=== PATIENT | male | born 1980 | race Caucasian/White ===

== ENCOUNTER 2021-05-17 04:15 | Emergency (ER) | payer MEDICAID ==
[~2021-05-17] VITALS: Ht 172.7 cm; Wt 127.3 kg
[~2021-05-17 04:15] MED LIST: CITA-144 PO
[2021-05-17 05:18] LABS: BASOPHILS % (AUTO) 0.2 % (0.0-2.0); EOSINOPHILS % (AUTO) 5.4 % (1.0-6.0); HEMATOCRIT 42.1 % (41-53); HEMOGLOBIN 14.5 g/dL (13.5-17.5); LYMPHOCYTES # (AUTO) 1.3 K/uL (1.0-4.8); LYMPHOCYTES % (AUTO) 19.9 % (22.0-44.0); MEAN CORPUSCULAR HEMOGLOBIN 30.9 pg (26.0-34.0); MEAN CORPUSCULAR HGB CONC 34.5 G/dL (31.0-37.0); MEAN CORPUSCULAR VOLUME 90 fL (80-100); MONOCYTES # (AUTO) 0.6 K/uL (0.1-1.0); MONOCYTES % (AUTO) 8.6 % (2.0-9.0); NEUTROPHILS # (AUTO) 4.4 K/uL (1.8-7.7); NEUTROPHILS % (AUTO) 65.9 % (40.0-70.0); PLATELET COUNT (AUTO) 257 K/uL (150-450); RED BLOOD CELL COUNT(AUTO) 4.69 MIL/uL (4.50-5.90); RED CELL DISTRIBUTION WIDTH 14.1 % (11.5-14.5)
[2021-05-17 05:22] LABS: ANION GAP 9 mmol/L (8-16); CALCIUM, TOTAL 8.6 mg/dL (8.8-10.5); CARBON DIOXIDE 33 mmol/L (22-29); CHLORIDE 103 mmol/L (98-107); CREATININE 0.96 mg/dL (0.60-1.30); GLOMERULAR FILTR. RATE CALC > 60 mL/min (>60); GLUCOSE,RANDOM 100 mg/dL (70-110); POTASSIUM 3.8 mmol/L (3.5-5.1); SODIUM SERUM 145 mmol/L (136-145); UREA NITROGEN, BLOOD 15 mg/dL (7-18)
[2021-05-17 05:29] LABS: ALANINE AMINOTRANSFERASE 39 U/L (12-78); ALBUMIN 3.2 g/dL (3.4-5.0); ALKALINE PHOSPHATASE 103 U/L (46-116); ASPARTATE AMINOTRANSFERASE 25 U/L (15-37); BILIRUBIN,TOTAL 0.3 mg/dL (0.1-1.0); TOTAL PROTEIN, SERUM 6.6 g/dL (6.4-8.2)
[2021-05-17] MEDS ORDERED: SODIUM CHLORIDE 0.9% 1,000 ML IV ONE (06:15)
[2021-05-17 07:10] VITALS: BP 139/88
== END 2021-05-17 09:47 | disposition home or self-care (01) ==
LOC: EMS 04:18
DX: K59.00 Constipation, unspecified (principal); K58.0 Irritable bowel syndrome with diarrhea; F32.9 Major depressive disorder, single episode, unspecified
CPT/HCPCS: 36415; 74019; 80053; 85025; 96360; 99284; G0480; J7030

== ENCOUNTER 2021-07-23 07:15 | Emergency (ER) | payer MEDICAID ==
[~2021-07-23] VITALS: Ht 172.7 cm; Wt 122.7 kg
[2021-07-23 07:55] LABS: BASOPHILS % (AUTO) 0.5 % (0.0-2.0); EOSINOPHILS % (AUTO) 3.9 % (1.0-6.0); HEMATOCRIT 41.2 % (41-53); HEMOGLOBIN 14.3 g/dL (13.5-17.5); LYMPHOCYTES # (AUTO) 2.1 K/uL (1.0-4.8); LYMPHOCYTES % (AUTO) 23.2 % (22.0-44.0); MEAN CORPUSCULAR HEMOGLOBIN 30.4 pg (26.0-34.0); MEAN CORPUSCULAR HGB CONC 34.7 G/dL (31.0-37.0); MEAN CORPUSCULAR VOLUME 88 fL (80-100); MONOCYTES # (AUTO) 0.8 K/uL (0.1-1.0); MONOCYTES % (AUTO) 8.6 % (2.0-9.0); NEUTROPHILS # (AUTO) 5.7 K/uL (1.8-7.7); NEUTROPHILS % (AUTO) 63.8 % (40.0-70.0); PLATELET COUNT (AUTO) 236 K/uL (150-450); RED BLOOD CELL COUNT(AUTO) 4.71 MIL/uL (4.50-5.90); RED CELL DISTRIBUTION WIDTH 13.9 % (11.5-14.5)
[2021-07-23 07:57] VITALS: BP 117/68
[2021-07-23 08:07] LABS: ANION GAP 6 mmol/L (8-16); CARBON DIOXIDE 32 mmol/L (22-29); CHLORIDE 100 mmol/L (98-107); CREATININE 0.88 mg/dL (0.60-1.30); GLOMERULAR FILTR. RATE CALC > 60 mL/min (>60); GLUCOSE,RANDOM 99 mg/dL (70-110); POTASSIUM 4.1 mmol/L (3.5-5.1); SODIUM SERUM 138 mmol/L (136-145); UREA NITROGEN, BLOOD 21 mg/dL (7-18)
[2021-07-23 08:12] LABS: ALANINE AMINOTRANSFERASE 51 U/L (12-78); ALBUMIN 3.4 g/dL (3.4-5.0); ALKALINE PHOSPHATASE 120 U/L (46-116); ASPARTATE AMINOTRANSFERASE 31 U/L (15-37); BILIRUBIN,TOTAL 0.2 mg/dL (0.1-1.0); TOTAL PROTEIN, SERUM 6.8 g/dL (6.4-8.2)
[2021-07-23 08:33] LABS: COVID AG,FIA SOURCE NASOPHARYNGEAL
[2021-07-23 08:41] LABS: AMPHET/METH SCREEN,URINE POSITIVE (NEGATIVE); BARBITURATE SCREEN, URINE NEGATIVE (NEGATIVE); BENZODIAZEPINES SCREEN,URINE NEGATIVE (NEGATIVE); CANNABINOID SCREEN,URINE POSITIVE (NEGATIVE); COCAINE SCREEN,URINE NEGATIVE (NEGATIVE); METHADONE SCREEN, URINE NEGATIVE (NEGATIVE); OPIATE SCREEN,URINE NEGATIVE (NEGATIVE)
[2021-07-23 08:42] LABS: PHENCYCLIDINE SCREEN,URINE NEGATIVE (NEGATIVE)
[2021-07-23] MEDS ORDERED: PARO-38 PO (11:28)
== END 2021-07-23 13:50 | disposition home or self-care (01) ==
LOC: EMS 07:16
DX: F32.A Depression, unspecified (principal); K59.00 Constipation, unspecified; Z88.8 Allergy status to other drugs, medicaments and biological substances; Z20.822 Contact with and (suspected) exposure to COVID-19
CPT/HCPCS: 36415; 80053; 80307; 85025; 87426; 99285; G0480

== ENCOUNTER 2021-07-25 11:47 | Inpatient (IN) | payer MEDICAID ==
[~2021-07-25] VITALS: Ht 172.7 cm; Wt 129.3 kg
[~2021-07-25 11:47] MED LIST changes: +PARO-38 PO
[2021-07-25] MEDS ORDERED: ZOLPIDEM TARTRATE 10 MG TABLET PO PRN (12:15)
[2021-07-25] MEDS ORDERED: HALOPERIDOL 5 MG TABLET PO PRN (12:15)
[2021-07-25 14:53] VITALS: BP 130/80
[2021-07-25] MEDS ORDERED: PNEUMOCOCCAL VACCINE POLYVALENT 0.5 ML VIAL [PPSV23] IM. ONE (15:15)
[2021-07-25 15:22] VITALS: BP 130/80
[2021-07-25 16:10] VITALS: BP 128/82
[2021-07-25] MEDS ORDERED: ONDANSETRON HCL 4 MG TABLET PO PRN (20:30)
[2021-07-25] MEDS ORDERED: CloNIDine HCL 0.1 MG TABLET PO PRN (20:30)
[2021-07-25] MEDS ORDERED: ALBUTEROL SULFATE HFA 90 MCG/PUFF 8 GM INHALER IH PRN (20:30)
[2021-07-25] MEDS ORDERED: BACITRACIN 28 GM OINTMENT TP PRN (20:30)
[2021-07-25] MEDS ORDERED: BENZOCAINE/MENTHOL LOZENGE PO PRN (20:30)
[2021-07-25] MEDS ORDERED: LOPERAMIDE HCL 2 MG CAPSULE PO PRN (20:30)
[2021-07-25] MEDS ORDERED: OMEPRAZOLE 20 MG CAPSULE PO PRN (20:30)
[2021-07-25] MEDS ORDERED: ACETAMINOPHEN 325 MG TABLET PO PRN (20:30)
[2021-07-25] MEDS ORDERED: DOCUSATE SODIUM 100 MG CAPSULE PO PRN (20:30)
[2021-07-25] MEDS ORDERED: MAG HYDROX/AL HYDROX/SIMETH ES 30 ML SUSPENSION UDCUP PO PRN (20:30)
[2021-07-25] MEDS ORDERED: MAGNESIUM HYDROXIDE SUSPENSION 30 ML UDCUP PO PRN (20:30)
[2021-07-25] MEDS ORDERED: PETROLATUM,WHITE 28 GM JELLY TP PRN (20:30)
[2021-07-25] MEDS ORDERED: IBUPROFEN 600 MG TABLET PO PRN (20:30)
[2021-07-26 00:32] VITALS: BP 126/79
[2021-07-26 07:26] LABS: BASOPHILS % (AUTO) 0.3 % (0.0-2.0); EOSINOPHILS % (AUTO) 1.2 % (1.0-6.0); HEMATOCRIT 41.2 % (41-53); LYMPHOCYTES # (AUTO) 1.2 K/uL (1.0-4.8); LYMPHOCYTES % (AUTO) 12.6 % (22.0-44.0); MEAN CORPUSCULAR HEMOGLOBIN 29.8 pg (26.0-34.0); MEAN CORPUSCULAR VOLUME 88 fL (80-100); MONOCYTES # (AUTO) 0.5 K/uL (0.1-1.0); MONOCYTES % (AUTO) 4.9 % (2.0-9.0); PLATELET COUNT (AUTO) 253 K/uL (150-450); RED CELL DISTRIBUTION WIDTH 13.7 % (11.5-14.5)
[2021-07-26 07:35] LABS: HEMOGLOBIN A1C 5.5 % (3.8-5.6)
[2021-07-26 07:54] LABS: ALANINE AMINOTRANSFERASE 39 U/L (12-78); ALBUMIN 3.1 g/dL (3.4-5.0); ALKALINE PHOSPHATASE 95 U/L (46-116); ANION GAP 7 mmol/L (8-16); ASPARTATE AMINOTRANSFERASE 16 U/L (15-37); BILIRUBIN,TOTAL 0.2 mg/dL (0.1-1.0); CALCIUM, TOTAL 8.8 mg/dL (8.8-10.5); CARBON DIOXIDE 31 mmol/L (22-29); CHLORIDE 104 mmol/L (98-107); CHOL/HDL RATIO 2.8 (4.2-7.3); CHOLESTEROL 136 mg/dL (131-200); CREATININE 0.92 mg/dL (0.60-1.30); GLOMERULAR FILTR. RATE CALC > 60 mL/min (>60); GLUCOSE,RANDOM 90 mg/dL (70-110); HDL CHOLESTEROL 48 mg/dL (40-60); LDL CHOL (CALC.) 80 mg/dL (0-130); POTASSIUM 3.9 mmol/L (3.5-5.1); SODIUM SERUM 142 mmol/L (136-145); TOTAL PROTEIN, SERUM 6.5 g/dL (6.4-8.2); TRIGLYCERIDES 42 mg/dL (15-150); UREA NITROGEN, BLOOD 17 mg/dL (7-18)
[2021-07-26 08:19] VITALS: BP 120/71
[2021-07-26 16:10] VITALS: BP 140/90
[2021-07-27 05:18] VITALS: BP 110/62
[2021-07-27] MEDS: LORazepam 2 MG TABLET PO PRN (05:41)
[2021-07-27 08:20] VITALS: BP 140/98
[2021-07-27] MEDS: CITALOPRAM HYDROBROMIDE 20 MG TABLET PO SCH (08:27)
[2021-07-27 16:17] VITALS: BP 132/83
[2021-07-27] MEDS: OLANZapine 10 MG TABLET PO SCH (20:20)
[2021-07-28 04:28] VITALS: BP 119/85
[2021-07-28 08:28] VITALS: BP 122/93
[2021-07-28] MEDS: LORazepam 2 MG TABLET PO PRN (09:12)
[2021-07-28] MEDS: CITALOPRAM HYDROBROMIDE 20 MG TABLET PO SCH (09:12)
[2021-07-28 16:23] VITALS: BP 140/83
[2021-07-28] MEDS: OLANZapine 10 MG TABLET PO SCH (20:22)
[2021-07-29 01:29] VITALS: BP 127/82
[2021-07-29 08:11] VITALS: BP 130/80
[2021-07-29] MEDS: CITALOPRAM HYDROBROMIDE 20 MG TABLET PO SCH (08:45)
[2021-07-29] MEDS: LORazepam 2 MG TABLET PO PRN (09:09)
[2021-07-29 16:32] VITALS: BP 144/95
[2021-07-29] MEDS: OLANZapine 10 MG TABLET PO SCH (20:14)
[2021-07-30 00:41] VITALS: BP 132/81
[2021-07-30 08:18] VITALS: BP 147/89
[2021-07-30] MEDS: CITALOPRAM HYDROBROMIDE 20 MG TABLET PO SCH (08:31)
[2021-07-30] MEDS ORDERED: CITA-144 PO (12:32)
[2021-07-30] MEDS ORDERED: OLAN10TA74 PO (12:33)
[2021-07-30 13:56] LABS: GLUCOMETER DEV NAME(LOC) POC.BV
== END 2021-07-30 13:45 | disposition home or self-care (01) | DRG 750 ==
LOC: B2S 12:22
PROVIDERS: ADMIT Psychiatry & Neurology Psychiatry; ATTEND Psychiatry & Neurology Psychiatry
DX: F25.9 Schizoaffective disorder, unspecified (principal); Z91.19 Patient's noncompliance with other medical treatment and regimen; F41.9 Anxiety disorder, unspecified; G47.00 Insomnia, unspecified; Z20.822 Contact with and (suspected) exposure to COVID-19; K21.9 Gastro-esophageal reflux disease without esophagitis; Z88.8 Allergy status to other drugs, medicaments and biological substances; Z79.899 Other long term (current) drug therapy
CPT/HCPCS: 80053; 80061; 83036; 84439; 84443; 85025; 86592; 90732

== ENCOUNTER 2021-08-10 18:40 | Inpatient (IN) | payer MEDICAID ==
[~2021-08-10] VITALS: Ht 175.3 cm; Wt 89.8 kg
[~2021-08-10 18:40] MED LIST changes: +OLAN10TA74 PO; -PARO-38 PO
[2021-08-10 19:08] LABS: BASOPHILS % (AUTO) 0.4 % (0.0-2.0); EOSINOPHILS % (AUTO) 2.9 % (1.0-6.0); HEMATOCRIT 40.1 % (41-53); HEMOGLOBIN 13.8 g/dL (13.5-17.5); LYMPHOCYTES # (AUTO) 2.1 K/uL (1.0-4.8); LYMPHOCYTES % (AUTO) 25.2 % (22.0-44.0); MEAN CORPUSCULAR HGB CONC 34.3 G/dL (31.0-37.0); MEAN CORPUSCULAR VOLUME 87 fL (80-100); MONOCYTES # (AUTO) 0.8 K/uL (0.1-1.0); MONOCYTES % (AUTO) 9.9 % (2.0-9.0); NEUTROPHILS # (AUTO) 5.1 K/uL (1.8-7.7); NEUTROPHILS % (AUTO) 61.6 % (40.0-70.0); PLATELET COUNT (AUTO) 275 K/uL (150-450); RED BLOOD CELL COUNT(AUTO) 4.59 MIL/uL (4.50-5.90); RED CELL DISTRIBUTION WIDTH 14.2 % (11.5-14.5)
[2021-08-10 19:15] LABS: ANION GAP 4 mmol/L (8-16); CALCIUM, TOTAL 9.2 mg/dL (8.8-10.5); CARBON DIOXIDE 33 mmol/L (22-29); CHLORIDE 103 mmol/L (98-107); CREATININE 0.91 mg/dL (0.60-1.30); GLOMERULAR FILTR. RATE CALC > 60 mL/min (>60); GLUCOSE,RANDOM 94 mg/dL (70-110); POTASSIUM 3.7 mmol/L (3.5-5.1); SODIUM SERUM 140 mmol/L (136-145); UREA NITROGEN, BLOOD 10 mg/dL (7-18)
[2021-08-10 19:21] LABS: ALANINE AMINOTRANSFERASE 41 U/L (12-78); ALBUMIN 3.5 g/dL (3.4-5.0); ALKALINE PHOSPHATASE 110 U/L (46-116); ASPARTATE AMINOTRANSFERASE 35 U/L (15-37); BILIRUBIN,TOTAL 0.5 mg/dL (0.1-1.0)
[2021-08-10 20:26] LABS: COVID AG,FIA SOURCE NASAL SWAB
[2021-08-10] MEDS ORDERED: DiphenhydrAMINE HCL 25 MG CAPSULE PO ONE (21:00)
[2021-08-10] MEDS ORDERED: OLANZapine 5 MG TABLET PO ONE (21:00)
[2021-08-10] MEDS ORDERED: LORazepam 2 MG TABLET PO ONE (21:00)
[2021-08-11 09:17] VITALS: BP 136/84
[2021-08-11] MEDS ORDERED: BACITRACIN 28 GM OINTMENT TP PRN (09:45)
[2021-08-11] MEDS ORDERED: ACETAMINOPHEN 325 MG TABLET PO PRN (09:45)
[2021-08-11] MEDS ORDERED: MAG HYDROX/AL HYDROX/SIMETH ES 30 ML SUSPENSION UDCUP PO PRN (09:45)
[2021-08-11] MEDS ORDERED: CloNIDine HCL 0.1 MG TABLET PO PRN (09:45)
[2021-08-11] MEDS ORDERED: LOPERAMIDE HCL 2 MG CAPSULE PO PRN (09:45)
[2021-08-11] MEDS ORDERED: PETROLATUM,WHITE 28 GM JELLY TP PRN (09:45)
[2021-08-11] MEDS ORDERED: ONDANSETRON HCL 4 MG TABLET PO PRN (09:45)
[2021-08-11] MEDS ORDERED: BENZOCAINE/MENTHOL LOZENGE PO PRN (09:45)
[2021-08-11] MEDS ORDERED: ALBUTEROL SULFATE HFA 90 MCG/PUFF 8 GM INHALER IH PRN (09:45)
[2021-08-11] MEDS ORDERED: OMEPRAZOLE 20 MG CAPSULE PO PRN (09:45)
[2021-08-11] MEDS ORDERED: DOCUSATE SODIUM 100 MG CAPSULE PO PRN (09:45)
[2021-08-11] MEDS ORDERED: IBUPROFEN 600 MG TABLET PO PRN (09:45)
[2021-08-11] MEDS ORDERED: MAGNESIUM HYDROXIDE SUSPENSION 30 ML UDCUP PO PRN (09:45)
[2021-08-11] MEDS: HALOPERIDOL 5 MG TABLET PO PRN ×2 (09:48→09:59)
[2021-08-11] MEDS: LORazepam 2 MG TABLET PO PRN ×2 (09:48→10:00)
[2021-08-11] MEDS ORDERED: HALOPERIDOL LACTATE 5 MG/ML VIAL IM ONE (11:15)
[2021-08-11] MEDS ORDERED: LORazepam 2 MG/ML VIAL IM ONE (11:15)
[2021-08-11] MEDS ORDERED: DiphenhydrAMINE HCL 50 MG/ML VIAL IM ONE (11:15)
[2021-08-11 20:12] VITALS: BP 140/82
[2021-08-11] MEDS: RisperiDONE 3 MG TABLET PO SCH (21:00)
[2021-08-12] MEDS ORDERED: LORazepam 2 MG/ML VIAL ONE (08:09)
[2021-08-12 08:10] VITALS: BP 137/86
[2021-08-12] MEDS ORDERED: HALOPERIDOL LACTATE 5 MG/ML VIAL IM ONE (08:10)
[2021-08-12] MEDS ORDERED: HALOPERIDOL LACTATE 5 MG/ML VIAL ONE (08:10)
[2021-08-12] MEDS ORDERED: DiphenhydrAMINE HCL 50 MG/ML VIAL ONE (08:10)
[2021-08-12] MEDS ORDERED: DiphenhydrAMINE HCL 50 MG/ML VIAL IM ONE (08:10)
[2021-08-12] MEDS ORDERED: LORazepam 2 MG/ML VIAL IM ONE (08:10)
[2021-08-12] MEDS: RisperiDONE 3 MG TABLET PO SCH ×2 (12:27→21:04)
[2021-08-12] MEDS: LORazepam 2 MG TABLET PO PRN (18:12)
[2021-08-12] MEDS: HALOPERIDOL 5 MG TABLET PO PRN (18:12)
[2021-08-12 20:15] VITALS: BP 138/84
[2021-08-12] MEDS: ZOLPIDEM TARTRATE 10 MG TABLET PO PRN (21:04)
[2021-08-13 09:24] VITALS: BP 129/66
[2021-08-13] MEDS: RisperiDONE 3 MG TABLET PO SCH ×2 (10:04→20:31)
[2021-08-13] MEDS: LORazepam 2 MG TABLET PO PRN (16:45)
[2021-08-13] MEDS: HALOPERIDOL 5 MG TABLET PO PRN (16:45)
[2021-08-13 20:07] VITALS: BP 142/80
[2021-08-13] MEDS: ZOLPIDEM TARTRATE 10 MG TABLET PO PRN (20:40)
[2021-08-14 06:58] VITALS: BP 136/80
[2021-08-14 08:17] VITALS: BP 136/80
[2021-08-14] MEDS: RisperiDONE 3 MG TABLET PO SCH (08:31)
== END 2021-08-14 15:58 | disposition home or self-care (01) | DRG 750 ==
LOC: EMS 18:40 → B2S 08-11 00:51 → B3A 08-11 14:23
PROVIDERS: ADMIT Psychiatry & Neurology Psychiatry; ATTEND Psychiatry & Neurology Psychiatry
DX: F25.9 Schizoaffective disorder, unspecified (principal); R45.851 Suicidal ideations; Z20.822 Contact with and (suspected) exposure to COVID-19; F41.9 Anxiety disorder, unspecified; F19.10 Other psychoactive substance abuse, uncomplicated; K21.9 Gastro-esophageal reflux disease without esophagitis; G47.00 Insomnia, unspecified; Z88.8 Allergy status to other drugs, medicaments and biological substances; Z72.0 Tobacco use
CPT/HCPCS: 80053; 85025; 99285; G0480; J1200; J1630; J2060

== ENCOUNTER 2021-10-04 10:14 | Emergency (ER) | payer MEDICAID, OTHER ==
[~2021-10-04] VITALS: Ht 172.7 cm; Wt 122.7 kg
[2021-10-04 13:21] VITALS: BP 144/60
[2021-10-04 13:45] LABS: BASOPHILS % (AUTO) 0.3 % (0.0-2.0); EOSINOPHILS % (AUTO) 4.4 % (1.0-6.0); HEMATOCRIT 42.3 % (41-53); HEMOGLOBIN 14.3 g/dL (13.5-17.5); LYMPHOCYTES # (AUTO) 2.2 K/uL (1.0-4.8); LYMPHOCYTES % (AUTO) 32.7 % (22.0-44.0); MEAN CORPUSCULAR HGB CONC 33.8 G/dL (31.0-37.0); MEAN CORPUSCULAR VOLUME 89 fL (80-100); MONOCYTES # (AUTO) 0.6 K/uL (0.1-1.0); MONOCYTES % (AUTO) 8.4 % (2.0-9.0); NEUTROPHILS # (AUTO) 3.6 K/uL (1.8-7.7); NEUTROPHILS % (AUTO) 54.2 % (40.0-70.0); PLATELET COUNT (AUTO) 243 K/uL (150-450); RED BLOOD CELL COUNT(AUTO) 4.76 MIL/uL (4.50-5.90)
[2021-10-04 13:59] LABS: ANION GAP 5 mmol/L (8-16); CALCIUM, TOTAL 9.2 mg/dL (8.8-10.5); CARBON DIOXIDE 31 mmol/L (22-29); CHLORIDE 103 mmol/L (98-107); CREATININE 0.81 mg/dL (0.60-1.30); GLUCOSE,RANDOM 84 mg/dL (70-110); POTASSIUM 4.1 mmol/L (3.5-5.1); SODIUM SERUM 139 mmol/L (136-145); UREA NITROGEN, BLOOD 15 mg/dL (7-18)
[2021-10-04 14:00] LABS: GLOMERULAR FILTR. RATE CALC > 60 mL/min (>60)
[2021-10-04 14:02] LABS: ALANINE AMINOTRANSFERASE 29 U/L (12-78); ALBUMIN 3.4 g/dL (3.4-5.0); ALKALINE PHOSPHATASE 93 U/L (46-116); ASPARTATE AMINOTRANSFERASE 16 U/L (15-37); BILIRUBIN,TOTAL 0.2 mg/dL (0.1-1.0)
== END 2021-10-04 17:05 | disposition home or self-care (01) ==
LOC: EMS 10:15
DX: R45.6 Violent behavior (principal); F20.9 Schizophrenia, unspecified; F31.9 Bipolar disorder, unspecified; F41.9 Anxiety disorder, unspecified; F43.10 Post-traumatic stress disorder, unspecified
CPT/HCPCS: 99283; 80053; 85025; 36415; G0480

== ENCOUNTER 2021-10-31 17:09 | Inpatient (IN) | payer MEDICAID, OTHER ==
[~2021-10-31] VITALS: Ht 175.3 cm; Wt 119.7 kg
[2021-10-31] MEDS ORDERED: LURASIDONE HCL 20 MG TABLET PO ONE (20:15)
[2021-10-31 20:28] LABS: BASOPHILS % (AUTO) 0.3 % (0.0-2.0); EOSINOPHILS % (AUTO) 2.1 % (1.0-6.0); HEMATOCRIT 45.8 % (41-53); HEMOGLOBIN 15.3 g/dL (13.5-17.5); LYMPHOCYTES # (AUTO) 2.8 K/uL (1.0-4.8); LYMPHOCYTES % (AUTO) 30.6 % (22.0-44.0); MEAN CORPUSCULAR HGB CONC 33.4 G/dL (31.0-37.0); MEAN CORPUSCULAR VOLUME 90 fL (80-100); MONOCYTES # (AUTO) 0.6 K/uL (0.1-1.0); MONOCYTES % (AUTO) 6.3 % (2.0-9.0); NEUTROPHILS # (AUTO) 5.6 K/uL (1.8-7.7); NEUTROPHILS % (AUTO) 60.7 % (40.0-70.0); PLATELET COUNT (AUTO) 233 K/uL (150-450); RED BLOOD CELL COUNT(AUTO) 5.11 MIL/uL (4.50-5.90); RED CELL DISTRIBUTION WIDTH 14.7 % (11.5-14.5)
[2021-10-31 20:43] LABS: ANION GAP 5 mmol/L (8-16); CARBON DIOXIDE 32 mmol/L (22-29); CHLORIDE 104 mmol/L (98-107); GLUCOSE,RANDOM 94 mg/dL (70-110); POTASSIUM 3.8 mmol/L (3.5-5.1); SODIUM SERUM 141 mmol/L (136-145); UREA NITROGEN, BLOOD 24 mg/dL (7-18)
[2021-10-31 20:44] LABS: GLOMERULAR FILTR. RATE CALC > 60 mL/min (>60)
[2021-10-31 20:49] LABS: ALANINE AMINOTRANSFERASE 34 U/L (12-78); ALBUMIN 3.8 g/dL (3.4-5.0); ALKALINE PHOSPHATASE 111 U/L (46-116); ASPARTATE AMINOTRANSFERASE 42 U/L (15-37); BILIRUBIN,TOTAL 0.4 mg/dL (0.1-1.0); TOTAL PROTEIN, SERUM 7.5 g/dL (6.4-8.2)
[2021-10-31] MEDS ORDERED: DiphenhydrAMINE HCL 50 MG/ML VIAL IM ONE (21:15)
[2021-10-31] MEDS ORDERED: HALOPERIDOL LACTATE 5 MG/ML VIAL IM ONE (21:15)
[2021-10-31] MEDS ORDERED: LORazepam 2 MG/ML VIAL IM ONE (21:15)
[2021-10-31 21:25] LABS: COVID AG,FIA SOURCE NASOPHARYNGEAL
[2021-11-01] MEDS ORDERED: ZOLPIDEM TARTRATE 10 MG TABLET PO PRN (01:00)
[2021-11-01 05:58] VITALS: BP 119/79
[2021-11-01] MEDS ORDERED: ACETAMINOPHEN 325 MG TABLET PO PRN (06:45)
[2021-11-01] MEDS ORDERED: IBUPROFEN 600 MG TABLET PO PRN (06:45)
[2021-11-01] MEDS ORDERED: OMEPRAZOLE 20 MG CAPSULE PO PRN (06:45)
[2021-11-01] MEDS ORDERED: MAGNESIUM HYDROXIDE SUSPENSION 30 ML UDCUP PO PRN (06:45)
[2021-11-01] MEDS ORDERED: LOPERAMIDE HCL 2 MG CAPSULE PO PRN (06:45)
[2021-11-01] MEDS ORDERED: BENZOCAINE/MENTHOL LOZENGE PO PRN (06:45)
[2021-11-01] MEDS ORDERED: BACITRACIN 28 GM OINTMENT TP PRN (06:45)
[2021-11-01] MEDS ORDERED: ALBUTEROL SULFATE HFA 90 MCG/PUFF 8 GM INHALER IH PRN (06:45)
[2021-11-01] MEDS ORDERED: MAG HYDROX/AL HYDROX/SIMETH ES 30 ML SUSPENSION UDCUP PO PRN (06:45)
[2021-11-01] MEDS ORDERED: ONDANSETRON HCL 4 MG TABLET PO PRN (06:45)
[2021-11-01] MEDS ORDERED: PETROLATUM,WHITE 28 GM JELLY TP PRN (06:45)
[2021-11-01] MEDS ORDERED: CloNIDine HCL 0.1 MG TABLET PO PRN (06:45)
[2021-11-01] MEDS ORDERED: DOCUSATE SODIUM 100 MG CAPSULE PO PRN (06:45)
[2021-11-01 08:29] VITALS: BP 118/69
[2021-11-01] MEDS: LORazepam 2 MG TABLET PO PRN ×2 (10:35→16:23)
[2021-11-01] MEDS: HALOPERIDOL 5 MG TABLET PO PRN (10:35)
[2021-11-01 20:14] VITALS: BP 136/69
[2021-11-02 02:05] VITALS: BP 132/79
[2021-11-02] MEDS: LORazepam 2 MG TABLET PO PRN (02:09)
[2021-11-02 08:37] VITALS: BP 130/90
[2021-11-02] MEDS ORDERED: DiphenhydrAMINE HCL 50 MG/ML VIAL ONE (08:39)
[2021-11-02] MEDS ORDERED: HALOPERIDOL LACTATE 5 MG/ML VIAL ONE (08:39)
[2021-11-02] MEDS ORDERED: DiphenhydrAMINE HCL 50 MG/ML VIAL IM ONE ×2 (08:45→11:00)
[2021-11-02] MEDS ORDERED: LORazepam 2 MG/ML VIAL IM ONE ×2 (08:45→11:00)
[2021-11-02] MEDS ORDERED: HALOPERIDOL LACTATE 5 MG/ML VIAL IM ONE ×2 (08:45→11:00)
[2021-11-02] MEDS: LITHIUM CARBONATE 300 MG CAPSULE PO SCH (18:08)
[2021-11-02] MEDS: DIVALPROEX SODIUM 500 MG DR TABLET PO SCH (18:08)
[2021-11-02] MEDS: RisperiDONE 3 MG TABLET PO SCH (18:08)
[2021-11-02 20:15] VITALS: BP 145/77
[2021-11-03] MEDS: HALOPERIDOL 5 MG TABLET PO PRN ×2 (06:20→07:17)
[2021-11-03] MEDS: LORazepam 2 MG TABLET PO PRN ×2 (06:20→07:17)
[2021-11-03] MEDS: DIVALPROEX SODIUM 500 MG DR TABLET PO SCH ×2 (08:11→16:39)
[2021-11-03] MEDS: LITHIUM CARBONATE 300 MG CAPSULE PO SCH ×2 (08:11→16:39)
[2021-11-03] MEDS: RisperiDONE 3 MG TABLET PO SCH ×2 (08:11→16:39)
[2021-11-03 09:03] LABS: HIV RAPID SCREEN NON-REACTIVE (NONREACTIVE)
[2021-11-03] MEDS ORDERED: RISP3TAB63 PO (14:00)
[2021-11-03] MEDS ORDERED: LITH300C3 PO (14:00)
[2021-11-03 16:06] LABS: RAPID PLASMA REAGIN NONREACTIVE (NONREACTIVE)
[2021-11-04 03:06] LABS: HEPATITIS C AB (EIA) <0.1 s/co ratio (0.0-0.9)
== END 2021-11-03 17:20 | disposition home or self-care (01) | DRG 750 ==
LOC: EMS 17:10 → B2S 11-01 04:04 → B3A 11-02 13:57
PROVIDERS: ADMIT Psychiatry & Neurology Psychiatry; ATTEND Psychiatry & Neurology Psychiatry
DX: F25.9 Schizoaffective disorder, unspecified (principal); R45.851 Suicidal ideations; E66.9 Obesity, unspecified; Z20.822 Contact with and (suspected) exposure to COVID-19; F43.10 Post-traumatic stress disorder, unspecified; F15.10 Other stimulant abuse, uncomplicated; K59.00 Constipation, unspecified; K21.9 Gastro-esophageal reflux disease without esophagitis; G47.00 Insomnia, unspecified; F19.10 Other psychoactive substance abuse, uncomplicated; F31.9 Bipolar disorder, unspecified; Z59.00 Homelessness unspecified; Z68.39 Body mass index [BMI] 39.0-39.9, adult; Z88.8 Allergy status to other drugs, medicaments and biological substances
CPT/HCPCS: 80053; 80074; 85025; 86592; 99285; G0480; J1200; J1630; J2060; Q9967

== ENCOUNTER 2021-11-04 14:28 | Inpatient (IN) | payer MEDICAID, OTHER ==
[~2021-11-04] VITALS: Ht 172.7 cm; Wt 120.0 kg
[~2021-11-04 14:28] MED LIST changes: -CITA-144 PO; +LITH300C3 PO; -OLAN10TA74 PO; +RISP3TAB63 PO
[2021-11-04 15:07] LABS: BASOPHILS % (AUTO) 0.2 % (0.0-2.0); EOSINOPHILS % (AUTO) 1.1 % (1.0-6.0); HEMATOCRIT 52.2 % (41-53); HEMOGLOBIN 17.3 g/dL (13.5-17.5); LYMPHOCYTES # (AUTO) 1.7 K/uL (1.0-4.8); LYMPHOCYTES % (AUTO) 19.4 % (22.0-44.0); MEAN CORPUSCULAR HEMOGLOBIN 29.7 pg (26.0-34.0); MEAN CORPUSCULAR HGB CONC 33.1 G/dL (31.0-37.0); MEAN CORPUSCULAR VOLUME 90 fL (80-100); MONOCYTES # (AUTO) 0.5 K/uL (0.1-1.0); MONOCYTES % (AUTO) 5.6 % (2.0-9.0); NEUTROPHILS # (AUTO) 6.4 K/uL (1.8-7.7); NEUTROPHILS % (AUTO) 73.7 % (40.0-70.0); PLATELET COUNT (AUTO) 250 K/uL (150-450); RED BLOOD CELL COUNT(AUTO) 5.81 MIL/uL (4.50-5.90); RED CELL DISTRIBUTION WIDTH 14.2 % (11.5-14.5)
[2021-11-04 15:20] LABS: ANION GAP 8 mmol/L (8-16); CALCIUM, TOTAL 9.9 mg/dL (8.8-10.5); CARBON DIOXIDE 27 mmol/L (22-29); CHLORIDE 103 mmol/L (98-107); CREATININE 0.93 mg/dL (0.60-1.30); GLOMERULAR FILTR. RATE CALC > 60 mL/min (>60); GLUCOSE,RANDOM 101 mg/dL (70-110); POTASSIUM 4.2 mmol/L (3.5-5.1); SODIUM SERUM 138 mmol/L (136-145); UREA NITROGEN, BLOOD 14 mg/dL (7-18)
[2021-11-04 15:25] LABS: ALANINE AMINOTRANSFERASE 30 U/L (12-78); ALBUMIN 4.2 g/dL (3.4-5.0); ALKALINE PHOSPHATASE 106 U/L (46-116); ASPARTATE AMINOTRANSFERASE 24 U/L (15-37); BILIRUBIN,TOTAL 0.5 mg/dL (0.1-1.0); TOTAL PROTEIN, SERUM 8.3 g/dL (6.4-8.2)
[2021-11-04] MEDS ORDERED: ONDANSETRON HCL 4 MG TABLET PO ONE (15:45)
[2021-11-04] MEDS ORDERED: ACETAMINOPHEN 500 MG TABLET PO ONE (15:45)
[2021-11-04] MEDS ORDERED: BACITRACIN 28 GM OINTMENT TP ONE (15:45)
[2021-11-04 16:49] LABS: COVID AG,FIA SOURCE NASOPHARYNGEAL
[2021-11-04 16:54] LABS: AMPHET/METH SCREEN,URINE NEGATIVE (NEGATIVE); BARBITURATE SCREEN, URINE NEGATIVE (NEGATIVE); BENZODIAZEPINES SCREEN,URINE NEGATIVE (NEGATIVE); CANNABINOID SCREEN,URINE POSITIVE (NEGATIVE); COCAINE SCREEN,URINE NEGATIVE (NEGATIVE); OPIATE SCREEN,URINE NEGATIVE (NEGATIVE)
[2021-11-04 16:55] LABS: PHENCYCLIDINE SCREEN,URINE NEGATIVE (NEGATIVE)
[2021-11-04 17:01] LABS: METHADONE SCREEN, URINE NEGATIVE (NEGATIVE)
[2021-11-04] MEDS: ZOLPIDEM TARTRATE 10 MG TABLET PO PRN (20:59)
[2021-11-04] MEDS: LORazepam 2 MG TABLET PO PRN (20:59)
[2021-11-04] MEDS: HALOPERIDOL 5 MG TABLET PO PRN (20:59)
[2021-11-05] MEDS: LORazepam 2 MG TABLET PO PRN ×2 (10:10→17:00)
[2021-11-05] MEDS: HALOPERIDOL 5 MG TABLET PO PRN ×2 (10:10→17:00)
[2021-11-05 16:02] VITALS: BP 128/82
[2021-11-05] MEDS: LITHIUM CARBONATE 300 MG CAPSULE PO SCH (17:00)
[2021-11-05] MEDS: DIVALPROEX SODIUM 500 MG DR TABLET PO SCH (17:00)
[2021-11-05] MEDS: RisperiDONE 3 MG TABLET PO SCH (17:18)
[2021-11-05 20:48] VITALS: BP 118/75
[2021-11-06] MEDS: LORazepam 2 MG TABLET PO PRN ×2 (04:27→15:42)
[2021-11-06] MEDS: HALOPERIDOL 5 MG TABLET PO PRN ×2 (04:27→15:42)
[2021-11-06 08:18] VITALS: BP 145/80
[2021-11-06] MEDS: DIVALPROEX SODIUM 500 MG DR TABLET PO SCH ×2 (08:26→16:56)
[2021-11-06] MEDS: RisperiDONE 3 MG TABLET PO SCH ×2 (08:26→16:55)
[2021-11-06] MEDS: LITHIUM CARBONATE 300 MG CAPSULE PO SCH ×2 (08:26→16:55)
[2021-11-06 20:18] VITALS: BP 148/82
[2021-11-06] MEDS: ZOLPIDEM TARTRATE 10 MG TABLET PO PRN (22:23)
[2021-11-07] MEDS: DIVALPROEX SODIUM 500 MG DR TABLET PO SCH ×2 (08:16→16:16)
[2021-11-07] MEDS: LITHIUM CARBONATE 300 MG CAPSULE PO SCH ×2 (08:16→16:16)
[2021-11-07] MEDS: RisperiDONE 3 MG TABLET PO SCH ×2 (08:16→16:16)
[2021-11-07 08:44] VITALS: BP 140/76
[2021-11-07 20:21] VITALS: BP 132/78
[2021-11-07] MEDS: HALOPERIDOL 5 MG TABLET PO PRN (21:16)
[2021-11-07] MEDS: ZOLPIDEM TARTRATE 10 MG TABLET PO PRN (21:16)
[2021-11-07] MEDS: LORazepam 2 MG TABLET PO PRN (21:16)
[2021-11-08] MEDS: DIVALPROEX SODIUM 500 MG DR TABLET PO SCH (08:12)
[2021-11-08] MEDS: RisperiDONE 3 MG TABLET PO SCH (08:12)
[2021-11-08] MEDS: LITHIUM CARBONATE 300 MG CAPSULE PO SCH (08:12)
[2021-11-08] MEDS ORDERED: LITH300C3 PO (10:22)
[2021-11-08] MEDS ORDERED: DIVA-112 PO (10:22)
[2021-11-08] MEDS ORDERED: RISP3TAB63 PO (10:22)
== END 2021-11-08 12:21 | disposition home or self-care (01) | DRG 750 ==
LOC: EMS 14:30 → B3A 11-05 01:06
PROVIDERS: ADMIT Psychiatry & Neurology Psychiatry; ATTEND Psychiatry & Neurology Psychiatry
DX: F25.9 Schizoaffective disorder, unspecified (principal); R45.851 Suicidal ideations; E66.9 Obesity, unspecified; F31.9 Bipolar disorder, unspecified; F43.10 Post-traumatic stress disorder, unspecified; K21.9 Gastro-esophageal reflux disease without esophagitis; G47.00 Insomnia, unspecified; Z20.822 Contact with and (suspected) exposure to COVID-19; F15.10 Other stimulant abuse, uncomplicated; Z79.899 Other long term (current) drug therapy; Z68.41 Body mass index [BMI] 40.0-44.9, adult; Z88.8 Allergy status to other drugs, medicaments and biological substances
CPT/HCPCS: 70450; 80053; 80307; 85025; 87081; 99285; G0480; Q0162

== ENCOUNTER 2021-11-16 20:31 | Emergency (ER) | payer MEDICAID, OTHER ==
[~2021-11-16] VITALS: Ht 172.7 cm; Wt 120.5 kg
[~2021-11-16 20:31] MED LIST changes: +DIVA-112 PO
[2021-11-16 21:02] LABS: BASOPHILS % (AUTO) 0.5 % (0.0-2.0); EOSINOPHILS % (AUTO) 2.2 % (1.0-6.0); HEMATOCRIT 41.4 % (41-53); HEMOGLOBIN 13.8 g/dL (13.5-17.5); LYMPHOCYTES % (AUTO) 31.2 % (22.0-44.0); MEAN CORPUSCULAR HEMOGLOBIN 29.9 pg (26.0-34.0); MEAN CORPUSCULAR HGB CONC 33.4 G/dL (31.0-37.0); MEAN CORPUSCULAR VOLUME 89 fL (80-100); MONOCYTES # (AUTO) 0.6 K/uL (0.1-1.0); MONOCYTES % (AUTO) 6.3 % (2.0-9.0); NEUTROPHILS # (AUTO) 5.7 K/uL (1.8-7.7); NEUTROPHILS % (AUTO) 59.8 % (40.0-70.0); PLATELET COUNT (AUTO) 274 K/uL (150-450); RED BLOOD CELL COUNT(AUTO) 4.63 MIL/uL (4.50-5.90); RED CELL DISTRIBUTION WIDTH 14.4 % (11.5-14.5)
[2021-11-16 21:10] LABS: ANION GAP 2 mmol/L (8-16); CALCIUM, TOTAL 9.1 mg/dL (8.8-10.5); CARBON DIOXIDE 32 mmol/L (22-29); CHLORIDE 106 mmol/L (98-107); CREATININE 0.98 mg/dL (0.60-1.30); GLUCOSE,RANDOM 121 mg/dL (70-110); POTASSIUM 3.1 mmol/L (3.5-5.1); SODIUM SERUM 140 mmol/L (136-145); UREA NITROGEN, BLOOD 12 mg/dL (7-18)
[2021-11-16 21:11] LABS: GLOMERULAR FILTR. RATE CALC > 60 mL/min (>60)
[2021-11-16 21:12] VITALS: BP 138/82
[2021-11-16 21:15] LABS: ALANINE AMINOTRANSFERASE 32 U/L (12-78); ALBUMIN 3.4 g/dL (3.4-5.0); ALKALINE PHOSPHATASE 86 U/L (46-116); ASPARTATE AMINOTRANSFERASE 35 U/L (15-37); BILIRUBIN,TOTAL 0.4 mg/dL (0.1-1.0); TOTAL PROTEIN, SERUM 6.4 g/dL (6.4-8.2)
[2021-11-16] MEDS ORDERED: RisperiDONE 1 MG TABLET PO ONE (21:15)
[2021-11-16] MEDS ORDERED: DiphenhydrAMINE HCL 25 MG CAPSULE PO ONE (21:15)
[2021-11-16 21:42] LABS: AMPHET/METH SCREEN,URINE POSITIVE (NEGATIVE); BARBITURATE SCREEN, URINE NEGATIVE (NEGATIVE); BENZODIAZEPINES SCREEN,URINE NEGATIVE (NEGATIVE); CANNABINOID SCREEN,URINE POSITIVE (NEGATIVE); COCAINE SCREEN,URINE NEGATIVE (NEGATIVE); METHADONE SCREEN, URINE NEGATIVE (NEGATIVE); OPIATE SCREEN,URINE NEGATIVE (NEGATIVE); PHENCYCLIDINE SCREEN,URINE NEGATIVE (NEGATIVE)
== END 2021-11-16 23:38 | disposition home or self-care (01) ==
LOC: EMS 20:36
DX: F20.9 Schizophrenia, unspecified (principal); F15.10 Other stimulant abuse, uncomplicated; F12.10 Cannabis abuse, uncomplicated; F17.210 Nicotine dependence, cigarettes, uncomplicated; F41.9 Anxiety disorder, unspecified; F31.9 Bipolar disorder, unspecified; I10 Essential (primary) hypertension; Z87.19 Personal history of other diseases of the digestive system; Z86.59 Personal history of other mental and behavioral disorders; Z88.8 Allergy status to other drugs, medicaments and biological substances; Z88.5 Allergy status to narcotic agent
CPT/HCPCS: 99283; 80053; 85025; 36415; 80307; G0480; 99282

== ENCOUNTER 2021-11-29 14:56 | Inpatient (IN) | payer MEDICAID, OTHER ==
[~2021-11-29] VITALS: Ht 172.7 cm; Wt 122.9 kg
[2021-11-29 18:16] LABS: BASOPHILS % (AUTO) 0.7 % (0.0-2.0); EOSINOPHILS % (AUTO) 4.4 % (1.0-6.0); HEMATOCRIT 44.4 % (41-53); HEMOGLOBIN 14.9 g/dL (13.5-17.5); LYMPHOCYTES # (AUTO) 2.4 K/uL (1.0-4.8); LYMPHOCYTES % (AUTO) 32.8 % (22.0-44.0); MEAN CORPUSCULAR HEMOGLOBIN 30.1 pg (26.0-34.0); MEAN CORPUSCULAR HGB CONC 33.6 G/dL (31.0-37.0); MEAN CORPUSCULAR VOLUME 90 fL (80-100); MONOCYTES # (AUTO) 0.6 K/uL (0.1-1.0); MONOCYTES % (AUTO) 7.6 % (2.0-9.0); NEUTROPHILS % (AUTO) 54.5 % (40.0-70.0); PLATELET COUNT (AUTO) 249 K/uL (150-450); RED BLOOD CELL COUNT(AUTO) 4.96 MIL/uL (4.50-5.90); RED CELL DISTRIBUTION WIDTH 14.2 % (11.5-14.5)
[2021-11-29 18:26] LABS: ANION GAP 4 mmol/L (8-16); CALCIUM, TOTAL 8.7 mg/dL (8.8-10.5); CARBON DIOXIDE 31 mmol/L (22-29); CHLORIDE 105 mmol/L (98-107); GLOMERULAR FILTR. RATE CALC > 60 mL/min (>60); GLUCOSE,RANDOM 97 mg/dL (70-110); POTASSIUM 4.1 mmol/L (3.5-5.1); SODIUM SERUM 140 mmol/L (136-145); UREA NITROGEN, BLOOD 15 mg/dL (7-18)
[2021-11-29 18:32] LABS: ALANINE AMINOTRANSFERASE 24 U/L (12-78); ALBUMIN 3.2 g/dL (3.4-5.0); ALKALINE PHOSPHATASE 101 U/L (46-116); ASPARTATE AMINOTRANSFERASE 12 U/L (15-37); BILIRUBIN,TOTAL 0.2 mg/dL (0.1-1.0); TOTAL PROTEIN, SERUM 6.5 g/dL (6.4-8.2)
[2021-11-29] MEDS ORDERED: HALOPERIDOL 5 MG TABLET PO PRN (19:15)
[2021-11-29 20:47] LABS: COVID AG,FIA SOURCE NASOPHARYNGEAL
[2021-11-30 01:40] VITALS: BP 157/97
[2021-11-30 01:50] VITALS: BP 141/98
[2021-11-30] MEDS: ZOLPIDEM TARTRATE 10 MG TABLET PO PRN (02:00)
[2021-11-30] MEDS ORDERED: PNEUMOCOCCAL VACCINE POLYVALENT 0.5 ML VIAL [PPSV23] IM. ONE (04:00)
[2021-11-30] MEDS ORDERED: INFLUENZA VIRUS VACCINE QVS 2022-23 (6MO+)/PF 60 MCG/0.5 ML SYRINGE IM. ONE (04:00)
[2021-11-30] MEDS ORDERED: MAG HYDROX/AL HYDROX/SIMETH ES 30 ML SUSPENSION UDCUP PO PRN (06:45)
[2021-11-30] MEDS ORDERED: LOPERAMIDE HCL 2 MG CAPSULE PO PRN (06:45)
[2021-11-30] MEDS ORDERED: ALBUTEROL SULFATE HFA 90 MCG/PUFF 8 GM INHALER IH PRN (06:45)
[2021-11-30] MEDS ORDERED: PETROLATUM,WHITE 28 GM JELLY TP PRN (06:45)
[2021-11-30] MEDS ORDERED: CloNIDine HCL 0.1 MG TABLET PO PRN (06:45)
[2021-11-30] MEDS ORDERED: BENZOCAINE/MENTHOL LOZENGE PO PRN (06:45)
[2021-11-30] MEDS ORDERED: IBUPROFEN 600 MG TABLET PO PRN (06:45)
[2021-11-30] MEDS ORDERED: ACETAMINOPHEN 325 MG TABLET PO PRN (06:45)
[2021-11-30] MEDS ORDERED: MAGNESIUM HYDROXIDE SUSPENSION 30 ML UDCUP PO PRN (06:45)
[2021-11-30] MEDS ORDERED: ONDANSETRON HCL 4 MG TABLET PO PRN (06:45)
[2021-11-30] MEDS ORDERED: BACITRACIN 28 GM OINTMENT TP PRN (06:45)
[2021-11-30] MEDS ORDERED: OMEPRAZOLE 20 MG CAPSULE PO PRN (06:45)
[2021-11-30] MEDS ORDERED: DOCUSATE SODIUM 100 MG CAPSULE PO PRN (06:45)
[2021-11-30 08:36] VITALS: BP 146/88
[2021-11-30] MEDS: LORazepam 2 MG TABLET PO PRN (11:32)
[2021-12-01 02:06] VITALS: BP 136/86
[2021-12-01] MEDS: LORazepam 2 MG TABLET PO PRN (02:07)
[2021-12-01] MEDS: ZOLPIDEM TARTRATE 10 MG TABLET PO PRN (02:07)
[2021-12-01] MEDS: LITHIUM CARBONATE 300 MG CAPSULE PO SCH ×2 (08:15→16:29)
[2021-12-01] MEDS: DIVALPROEX SODIUM 500 MG DR TABLET PO SCH ×2 (08:15→16:29)
[2021-12-01] MEDS: RisperiDONE 3 MG TABLET PO SCH ×2 (08:15→16:29)
[2021-12-01 08:45] VITALS: BP 145/89
[2021-12-01 20:51] VITALS: BP 140/84
[2021-12-02] MEDS: LITHIUM CARBONATE 300 MG CAPSULE PO SCH ×2 (08:33→16:16)
[2021-12-02] MEDS: RisperiDONE 3 MG TABLET PO SCH ×2 (08:33→16:16)
[2021-12-02] MEDS: LORazepam 2 MG TABLET PO PRN ×2 (08:33→17:19)
[2021-12-02] MEDS: DIVALPROEX SODIUM 500 MG DR TABLET PO SCH ×2 (08:33→16:16)
[2021-12-02 08:53] VITALS: BP 166/99
[2021-12-02 20:23] VITALS: BP 146/84
[2021-12-03 09:00] VITALS: BP 125/69
[2021-12-03] MEDS: LITHIUM CARBONATE 300 MG CAPSULE PO SCH ×2 (09:01→17:19)
[2021-12-03] MEDS: DIVALPROEX SODIUM 500 MG DR TABLET PO SCH ×2 (09:01→17:19)
[2021-12-03] MEDS: RisperiDONE 3 MG TABLET PO SCH ×2 (09:01→17:19)
[2021-12-03 20:25] VITALS: BP 148/84
[2021-12-04] MEDS: ZOLPIDEM TARTRATE 10 MG TABLET PO PRN (02:13)
[2021-12-04 07:48] LABS: LITHIUM 0.28 mmol/L (0.60-1.20)
[2021-12-04] MEDS: DIVALPROEX SODIUM 500 MG DR TABLET PO SCH ×2 (08:18→16:26)
[2021-12-04] MEDS: RisperiDONE 3 MG TABLET PO SCH ×2 (08:18→16:26)
[2021-12-04] MEDS: LITHIUM CARBONATE 300 MG CAPSULE PO SCH ×2 (08:18→16:26)
[2021-12-04] MEDS: LORazepam 2 MG TABLET PO PRN (08:23)
[2021-12-04 20:27] VITALS: BP 144/80
[2021-12-05] MEDS: RisperiDONE 3 MG TABLET PO SCH ×2 (08:27→16:26)
[2021-12-05] MEDS: LITHIUM CARBONATE 300 MG CAPSULE PO SCH ×2 (08:27→16:26)
[2021-12-05] MEDS: DIVALPROEX SODIUM 500 MG DR TABLET PO SCH ×2 (08:27→16:26)
[2021-12-05] MEDS: LORazepam 2 MG TABLET PO PRN ×2 (08:28→17:57)
[2021-12-05 08:39] VITALS: BP 106/68
[2021-12-05] MEDS: ZOLPIDEM TARTRATE 10 MG TABLET PO PRN (20:34)
[2021-12-05 21:01] VITALS: BP 144/101
[2021-12-05] MEDS ORDERED: RISP3TAB63 PO (23:56)
[2021-12-05] MEDS ORDERED: DIVA-112 PO (23:56)
[2021-12-05] MEDS ORDERED: LITH300C3 PO (23:56)
[2021-12-06] MEDS: LITHIUM CARBONATE 300 MG CAPSULE PO SCH (08:26)
[2021-12-06] MEDS: RisperiDONE 3 MG TABLET PO SCH (08:26)
[2021-12-06] MEDS: DIVALPROEX SODIUM 500 MG DR TABLET PO SCH (08:26)
[2021-12-06 08:28] VITALS: BP 139/98
[2021-12-06] MEDS ORDERED: NICOTINE 21 MG/24 HOUR PATCH TD SCH (09:00)
== END 2021-12-06 10:40 | disposition home or self-care (01) | DRG 750 ==
LOC: EMS 15:03 → B3A 11-30 00:23
PROVIDERS: ADMIT Psychiatry & Neurology Psychiatry; ATTEND Psychiatry & Neurology Psychiatry
DX: F25.9 Schizoaffective disorder, unspecified (principal); R45.851 Suicidal ideations; F41.9 Anxiety disorder, unspecified; G47.00 Insomnia, unspecified; I10 Essential (primary) hypertension; K21.9 Gastro-esophageal reflux disease without esophagitis; E66.9 Obesity, unspecified; F15.10 Other stimulant abuse, uncomplicated; G89.29 Other chronic pain; F17.210 Nicotine dependence, cigarettes, uncomplicated; M54.9 Dorsalgia, unspecified; Z20.822 Contact with and (suspected) exposure to COVID-19; Z79.899 Other long term (current) drug therapy; Z59.00 Homelessness unspecified; Z68.41 Body mass index [BMI] 40.0-44.9, adult; Z88.8 Allergy status to other drugs, medicaments and biological substances
CPT/HCPCS: 80053; 80164; 80178; 85025; 87081; 90686; 90732; 99285; G0480

== ENCOUNTER 2021-12-31 09:50 | Inpatient (IN) | payer MEDICAID, OTHER ==
[~2021-12-31] VITALS: Ht 172.7 cm; Wt 122.1 kg
[2021-12-31 10:37] LABS: BASOPHILS % (AUTO) 0.2 % (0.0-2.0); EOSINOPHILS % (AUTO) 0.2 % (1.0-6.0); HEMATOCRIT 42.4 % (41-53); HEMOGLOBIN 14.3 g/dL (13.5-17.5); LYMPHOCYTES # (AUTO) 0.7 K/uL (1.0-4.8); LYMPHOCYTES % (AUTO) 9.9 % (22.0-44.0); MEAN CORPUSCULAR HEMOGLOBIN 30.2 pg (26.0-34.0); MEAN CORPUSCULAR HGB CONC 33.7 G/dL (31.0-37.0); MEAN CORPUSCULAR VOLUME 90 fL (80-100); MONOCYTES # (AUTO) 0.5 K/uL (0.1-1.0); MONOCYTES % (AUTO) 6.5 % (2.0-9.0); NEUTROPHILS # (AUTO) 6.1 K/uL (1.8-7.7); NEUTROPHILS % (AUTO) 83.2 % (40.0-70.0); PLATELET COUNT (AUTO) 209 K/uL (150-450); RED BLOOD CELL COUNT(AUTO) 4.73 MIL/uL (4.50-5.90); RED CELL DISTRIBUTION WIDTH 14.6 % (11.5-14.5)
[2021-12-31] MEDS ORDERED: CARI1CAP PO (10:37)
[2021-12-31] MEDS ORDERED: LISI-894 PO (10:37)
[2021-12-31] MEDS ORDERED: PRAZ1 PO (10:37)
[2021-12-31 10:52] LABS: ANION GAP 5 mmol/L (8-16); CALCIUM, TOTAL 8.7 mg/dL (8.8-10.5); CARBON DIOXIDE 29 mmol/L (22-29); CHLORIDE 104 mmol/L (98-107); CREATININE 0.83 mg/dL (0.60-1.30); GLOMERULAR FILTR. RATE CALC > 60 mL/min (>60); GLUCOSE,RANDOM 102 mg/dL (70-110); POTASSIUM 3.8 mmol/L (3.5-5.1); SODIUM SERUM 138 mmol/L (136-145); UREA NITROGEN, BLOOD 13 mg/dL (7-18)
[2021-12-31 11:00] LABS: ALANINE AMINOTRANSFERASE 23 U/L (12-78); ALKALINE PHOSPHATASE 79 U/L (46-116); ASPARTATE AMINOTRANSFERASE 16 U/L (15-37); BILIRUBIN,TOTAL 0.3 mg/dL (0.1-1.0); TOTAL PROTEIN, SERUM 6.5 g/dL (6.4-8.2)
[2021-12-31] MEDS ORDERED: LORazepam 1 MG TABLET PO ONE (11:30)
[2021-12-31] MEDS ORDERED: HALOPERIDOL 5 MG TABLET PO ONE (11:30)
[2021-12-31] MEDS ORDERED: ZOLPIDEM TARTRATE 10 MG TABLET PO PRN (13:30)
[2021-12-31 13:54] LABS: COVID AG,FIA SOURCE NASAL SWAB
[2021-12-31] MEDS: IBUPROFEN 600 MG TABLET PO PRN (14:59)
[2021-12-31] MEDS ORDERED: ACETAMINOPHEN 325 MG TABLET PO PRN (15:00)
[2021-12-31 16:57] VITALS: BP 155/85
[2021-12-31] MEDS ORDERED: NICOTINE POLACRILEX 2 MG LOZENGE PO PRN (17:15)
[2021-12-31] MEDS ORDERED: INFLUENZA VIRUS VACCINE QVS 2022-23 (6MO+)/PF 60 MCG/0.5 ML SYRINGE IM. ONE (18:00)
[2021-12-31] MEDS ORDERED: PNEUMOCOCCAL VACCINE POLYVALENT 0.5 ML VIAL [PPSV23] IM. ONE (18:00)
[2022-01-01] MEDS ORDERED: CloNIDine HCL 0.1 MG TABLET PO PRN (05:45)
[2022-01-01] MEDS ORDERED: ACETAMINOPHEN 325 MG TABLET PO PRN (05:45)
[2022-01-01] MEDS ORDERED: PETROLATUM,WHITE 28 GM JELLY TP PRN (05:45)
[2022-01-01] MEDS ORDERED: OMEPRAZOLE 20 MG CAPSULE PO PRN (05:45)
[2022-01-01] MEDS ORDERED: DOCUSATE SODIUM 100 MG CAPSULE PO PRN (05:45)
[2022-01-01] MEDS ORDERED: MAGNESIUM HYDROXIDE SUSPENSION 30 ML UDCUP PO PRN (05:45)
[2022-01-01] MEDS ORDERED: ONDANSETRON HCL 4 MG TABLET PO PRN (05:45)
[2022-01-01] MEDS ORDERED: BACITRACIN 28 GM OINTMENT TP PRN (05:45)
[2022-01-01] MEDS ORDERED: LOPERAMIDE HCL 2 MG CAPSULE PO PRN (05:45)
[2022-01-01] MEDS ORDERED: MAG HYDROX/AL HYDROX/SIMETH ES 30 ML SUSPENSION UDCUP PO PRN (05:45)
[2022-01-01] MEDS ORDERED: ALBUTEROL SULFATE HFA 90 MCG/PUFF 8 GM INHALER IH PRN (05:45)
[2022-01-01] MEDS ORDERED: BENZOCAINE/MENTHOL LOZENGE PO PRN (05:45)
[2022-01-01 05:55] VITALS: BP 135/92
[2022-01-01] MEDS: IBUPROFEN 600 MG TABLET PO PRN ×2 (05:57→17:48)
[2022-01-01 08:00] VITALS: BP 145/87
[2022-01-01] MEDS: LORazepam 2 MG TABLET PO PRN (09:45)
[2022-01-01] MEDS: HALOPERIDOL 5 MG TABLET PO PRN (09:46)
[2022-01-01] MEDS: LISINOPRIL 10 MG TABLET PO SCH (10:41)
[2022-01-01] MEDS: RisperiDONE 3 MG TABLET PO SCH ×2 (10:45→20:59)
[2022-01-01 16:00] VITALS: BP 129/81
[2022-01-01] MEDS: DIVALPROEX SODIUM 500 MG DR TABLET PO SCH (20:59)
[2022-01-02] MEDS: LISINOPRIL 10 MG TABLET PO SCH (08:08)
[2022-01-02] MEDS: RisperiDONE 3 MG TABLET PO SCH ×2 (08:08→20:29)
[2022-01-02] MEDS: DIVALPROEX SODIUM 500 MG DR TABLET PO SCH ×2 (08:08→20:30)
[2022-01-02] MEDS: LORazepam 2 MG TABLET PO PRN ×2 (08:09→17:16)
[2022-01-02] MEDS: HALOPERIDOL 5 MG TABLET PO PRN ×2 (08:09→17:16)
[2022-01-02 08:37] VITALS: BP 124/82
[2022-01-02] MEDS ORDERED: DIVALPROEX SODIUM 500 MG DR TABLET PO SCH (09:00)
[2022-01-02 12:45] VITALS: BP 128/76
[2022-01-02] MEDS: IBUPROFEN 600 MG TABLET PO PRN (12:45)
[2022-01-02 13:45] VITALS: BP 122/78
[2022-01-02] MEDS: BENZOCAINE/MENTHOL/ZINC CL 20% 11.9 GM GEL TP PRN (17:14)
[2022-01-03] MEDS: BENZOCAINE/MENTHOL/ZINC CL 20% 11.9 GM GEL TP PRN (02:57)
[2022-01-03 02:58] VITALS: BP 126/80
[2022-01-03 04:27] VITALS: BP 128/79
[2022-01-03] MEDS: IBUPROFEN 600 MG TABLET PO PRN ×2 (04:27→14:21)
[2022-01-03 08:49] VITALS: BP 127/63
[2022-01-03] MEDS: DIVALPROEX SODIUM 500 MG DR TABLET PO SCH ×2 (08:51→20:04)
[2022-01-03] MEDS: LISINOPRIL 10 MG TABLET PO SCH (08:51)
[2022-01-03] MEDS: RisperiDONE 3 MG TABLET PO SCH ×2 (08:51→20:04)
[2022-01-03 14:21] VITALS: BP 124/68
[2022-01-03 15:21] VITALS: BP 126/72
[2022-01-04 08:03] VITALS: BP 121/90
[2022-01-04] MEDS: DIVALPROEX SODIUM 500 MG DR TABLET PO SCH ×2 (09:00→20:02)
[2022-01-04] MEDS: RisperiDONE 3 MG TABLET PO SCH ×2 (09:00→20:02)
[2022-01-04] MEDS: LISINOPRIL 10 MG TABLET PO SCH (09:05)
[2022-01-04] MEDS: LORazepam 2 MG TABLET PO PRN ×2 (09:06→16:16)
[2022-01-04 16:14] VITALS: BP 134/77
[2022-01-04] MEDS: IBUPROFEN 600 MG TABLET PO PRN (16:17)
[2022-01-05] MEDS: LORazepam 2 MG TABLET PO PRN ×2 (08:22→14:16)
[2022-01-05] MEDS: DIVALPROEX SODIUM 500 MG DR TABLET PO SCH ×2 (08:22→20:08)
[2022-01-05] MEDS: LISINOPRIL 10 MG TABLET PO SCH (08:22)
[2022-01-05] MEDS: RisperiDONE 3 MG TABLET PO SCH ×2 (08:22→20:08)
[2022-01-05] MEDS ORDERED: LISI-893 PO (11:50)
[2022-01-05 16:57] VITALS: BP 123/86
[2022-01-05] MEDS ORDERED: DIVA-112 PO (17:54)
[2022-01-05] MEDS ORDERED: RISP3TAB63 PO (17:54)
[2022-01-06] MEDS: DIVALPROEX SODIUM 500 MG DR TABLET PO SCH (08:03)
[2022-01-06] MEDS: LISINOPRIL 10 MG TABLET PO SCH (08:03)
[2022-01-06] MEDS: RisperiDONE 3 MG TABLET PO SCH (08:03)
[2022-01-06 08:04] VITALS: BP 156/93
== END 2022-01-06 14:33 | disposition home or self-care (01) | DRG 750 ==
LOC: EMS 10:05 → 3EC 15:40
PROVIDERS: ADMIT Psychiatry & Neurology Psychiatry; ATTEND Psychiatry & Neurology Psychiatry
DX: F25.9 Schizoaffective disorder, unspecified (principal); R45.851 Suicidal ideations; F29 Unspecified psychosis not due to a substance or known physiological condition; R45.850 Homicidal ideations; F31.9 Bipolar disorder, unspecified; I10 Essential (primary) hypertension; F43.10 Post-traumatic stress disorder, unspecified; G89.29 Other chronic pain; M54.9 Dorsalgia, unspecified; J45.909 Unspecified asthma, uncomplicated; K59.00 Constipation, unspecified; F15.10 Other stimulant abuse, uncomplicated; E66.9 Obesity, unspecified; K21.9 Gastro-esophageal reflux disease without esophagitis; Z20.822 Contact with and (suspected) exposure to COVID-19; G47.00 Insomnia, unspecified; F41.9 Anxiety disorder, unspecified; Z88.8 Allergy status to other drugs, medicaments and biological substances; Z79.899 Other long term (current) drug therapy; Z87.891 Personal history of nicotine dependence; Z28.21 Immunization not carried out because of patient refusal; Z68.41 Body mass index [BMI] 40.0-44.9, adult
CPT/HCPCS: 80053; 85025; 99285; G0480

== ENCOUNTER 2022-01-12 15:37 | Emergency (ER) | payer MEDICAID, OTHER ==
[~2022-01-12] VITALS: Ht 172.7 cm; Wt 125.0 kg
[~2022-01-12 15:37] MED LIST changes: -LITH300C3 PO
[2022-01-12 18:23] LABS: BASOPHILS % (AUTO) 0.3 % (0.0-2.0); EOSINOPHILS % (AUTO) 3.2 % (1.0-6.0); HEMATOCRIT 41.3 % (41-53); HEMOGLOBIN 13.7 g/dL (13.5-17.5); LYMPHOCYTES # (AUTO) 1.8 K/uL (1.0-4.8); LYMPHOCYTES % (AUTO) 19.2 % (22.0-44.0); MEAN CORPUSCULAR HEMOGLOBIN 29.7 pg (26.0-34.0); MEAN CORPUSCULAR HGB CONC 33.3 G/dL (31.0-37.0); MEAN CORPUSCULAR VOLUME 89 fL (80-100); MONOCYTES # (AUTO) 0.7 K/uL (0.1-1.0); MONOCYTES % (AUTO) 7.4 % (2.0-9.0); NEUTROPHILS # (AUTO) 6.7 K/uL (1.8-7.7); NEUTROPHILS % (AUTO) 69.9 % (40.0-70.0); PLATELET COUNT (AUTO) 260 K/uL (150-450); RED BLOOD CELL COUNT(AUTO) 4.63 MIL/uL (4.50-5.90); RED CELL DISTRIBUTION WIDTH 14.1 % (11.5-14.5)
[2022-01-12 18:28] LABS: ANION GAP 2 mmol/L (8-16); CALCIUM, TOTAL 9.1 mg/dL (8.8-10.5); CARBON DIOXIDE 34 mmol/L (22-29); CHLORIDE 102 mmol/L (98-107); CREATININE 1.06 mg/dL (0.60-1.30); GLUCOSE,RANDOM 97 mg/dL (70-110); POTASSIUM 4.3 mmol/L (3.5-5.1); SODIUM SERUM 138 mmol/L (136-145); UREA NITROGEN, BLOOD 9 mg/dL (7-18)
[2022-01-12 18:28] LABS: COVID AG,FIA SOURCE NASOPHARYNGEAL
[2022-01-12 18:33] LABS: GLOMERULAR FILTR. RATE CALC > 60 mL/min (>60)
[2022-01-12 18:35] LABS: ALANINE AMINOTRANSFERASE 18 U/L (12-78); ALBUMIN 3.1 g/dL (3.4-5.0); ALKALINE PHOSPHATASE 94 U/L (46-116); ASPARTATE AMINOTRANSFERASE 10 U/L (15-37); BILIRUBIN,TOTAL 0.1 mg/dL (0.1-1.0); TOTAL PROTEIN, SERUM 6.7 g/dL (6.4-8.2); VALPROIC ACID 35 mcg/mL (50-100)
[2022-01-12 18:47] LABS: INFLUENZA TYPE A NEGATIVE FOR TYPE A (NEGATIVE); INFLUENZA TYPE B NEGATIVE FOR TYPE B (NEGATIVE)
[2022-01-12 20:12] VITALS: BP 128/80
[2022-01-12] MEDS ORDERED: IPRATROPIUM BROMIDE 0.5 MG/2.5 ML NEB SOLUTION NEB ONE (20:15)
[2022-01-12] MEDS ORDERED: ALBUTEROL SULFATE 2.5 MG/0.5 ML NEB SOLUTION NEB ONE (20:15)
[2022-01-12] MEDS ORDERED: RisperiDONE 1 MG TABLET PO ONE (22:00)
== END 2022-01-13 01:01 | disposition home or self-care (01) ==
LOC: EMS 16:07
DX: F20.9 Schizophrenia, unspecified (principal); R45.851 Suicidal ideations; J06.9 Acute upper respiratory infection, unspecified; J45.909 Unspecified asthma, uncomplicated; F41.9 Anxiety disorder, unspecified; F31.9 Bipolar disorder, unspecified; I10 Essential (primary) hypertension; G89.29 Other chronic pain; M54.9 Dorsalgia, unspecified; F12.90 Cannabis use, unspecified, uncomplicated; Z88.8 Allergy status to other drugs, medicaments and biological substances; Z20.822 Contact with and (suspected) exposure to COVID-19
CPT/HCPCS: 99284; 87426; 80053; 80164; 85025; 87804; 36415; 94640; G0480

== ENCOUNTER 2022-06-08 15:20 | Emergency (ER) | payer OTHER ==
[~2022-06-08] VITALS: Ht 170.2 cm; Wt 104.5 kg
[2022-06-08] MEDS ORDERED: CARI1.5C PO (15:24)
[2022-06-08] MEDS ORDERED: HYDR-3831 PO (15:24)
[2022-06-08] MEDS ORDERED: BUPR-344 PO (15:24)
[2022-06-08] MEDS ORDERED: OXYMETAZOLINE HCL 0.05% 15 ML NASAL SPRAY NASAL ONE (17:00)
[2022-06-08] MEDS ORDERED: IBUPROFEN 600 MG TABLET PO ONE (17:00)
[2022-06-08 17:21] LABS: COVID AG,FIA SOURCE NASOPHARYNGEAL
[2022-06-08 17:46] LABS: INFLUENZA TYPE A NEGATIVE FOR TYPE A (NEGATIVE); INFLUENZA TYPE B NEGATIVE FOR TYPE B (NEGATIVE)
[2022-06-08 18:51] VITALS: BP 127/78
== END 2022-06-08 18:51 | disposition home or self-care (01) ==
LOC: EMS 15:22
DX: J32.9 Chronic sinusitis, unspecified (principal); J45.909 Unspecified asthma, uncomplicated; I10 Essential (primary) hypertension; F41.9 Anxiety disorder, unspecified; F31.9 Bipolar disorder, unspecified; F20.9 Schizophrenia, unspecified; G89.29 Other chronic pain; F12.90 Cannabis use, unspecified, uncomplicated; Z88.8 Allergy status to other drugs, medicaments and biological substances; Z20.822 Contact with and (suspected) exposure to COVID-19
CPT/HCPCS: 87804; 99283

== ENCOUNTER 2023-06-12 15:47 | Emergency (ER) | payer OTHER ==
[~2023-06-12] VITALS: Ht 172.7 cm; Wt 120.5 kg
[~2023-06-12 15:47] MED LIST changes: +BUPR-344 PO; +CARI1.5C PO; -DIVA-112 PO; +HYDR-3831 PO; -RISP3TAB63 PO
[2023-06-12] MEDS ORDERED: HALO50VI29 IM (17:44)
[2023-06-12] MEDS ORDERED: LISI5TAB21 PO (17:44)
[2023-06-12] MEDS: METOCLOPRAMIDE HCL 5 MG/ML 2 ML VIAL IVP ONE (18:20)
[2023-06-12] MEDS: SODIUM CHLORIDE 0.9% 1,000 ML IV ONE ×2 (18:20→21:08)
[2023-06-12 18:52] LABS: LACTIC ACID 1.5 mmol/L (0.4-2.0)
[2023-06-12 19:05] LABS: ANION GAP 15 mmol/L (8-16); CALCIUM, TOTAL 8.9 mg/dL (8.8-10.5); CARBON DIOXIDE 21 mmol/L (22-29); CHLORIDE 104 mmol/L (98-107); CREATININE 1.07 mg/dL (0.60-1.30); GLOMERULAR FILTR. RATE CALC > 60 mL/min (>60); GLUCOSE,RANDOM 121 mg/dL (70-110); POTASSIUM 3.8 mmol/L (3.5-5.1); SODIUM SERUM 140 mmol/L (136-145); UREA NITROGEN, BLOOD 23 mg/dL (7-18)
[2023-06-12 19:15] LABS: ALANINE AMINOTRANSFERASE 37 U/L (12-78); ALBUMIN 3.8 g/dL (3.4-5.0); ALKALINE PHOSPHATASE 141 U/L (46-116); ASPARTATE AMINOTRANSFERASE 24 U/L (15-37); BILIRUBIN,TOTAL 0.5 mg/dL (0.1-1.0); LIPASE 28 U/L (16-77); TOTAL PROTEIN, SERUM 7.8 g/dL (6.4-8.2)
[2023-06-12 19:17] LABS: TROPONIN I-HIGH SENSITIVITY 6 ng/L (<76)
[2023-06-12 20:12] LABS: ALCOHOL, BLOOD (SERUM) < 3 mg/dL (0-10)
[2023-06-12 20:12] LABS: BASOPHILS % (AUTO) 0.1 % (0.0-2.0); EOSINOPHILS % (AUTO) 3.3 % (1.0-6.0); HEMATOCRIT 52.3 % (41-53); HEMOGLOBIN 17.5 g/dL (13.5-17.5); LYMPHOCYTES # (AUTO) 1.1 K/uL (1.0-4.8); LYMPHOCYTES % (AUTO) 7.9 % (22.0-44.0); MEAN CORPUSCULAR HEMOGLOBIN 29.9 pg (26.0-34.0); MEAN CORPUSCULAR HGB CONC 33.4 G/dL (31.0-37.0); MEAN CORPUSCULAR VOLUME 90 fL (80-100); MONOCYTES # (AUTO) 0.7 K/uL (0.1-1.0); MONOCYTES % (AUTO) 4.6 % (2.0-9.0); NEUTROPHILS % (AUTO) 84.1 % (40.0-70.0); PLATELET COUNT (AUTO) 279 K/uL (150-450); RED BLOOD CELL COUNT(AUTO) 5.85 MIL/uL (4.50-5.90); RED CELL DISTRIBUTION WIDTH 14.3 % (11.5-14.5); WHITE BLOOD COUNT (AUTO) 14.2 K/uL (4.5-11.0)
[2023-06-12] MEDS ORDERED: OMEP20 PO (21:06)
[2023-06-12] MEDS ORDERED: ACET-66 PO (21:06)
[2023-06-12] MEDS ORDERED: ONDA-104 PO (21:06)
[2023-06-12] MEDS: ONDANSETRON HCL 4 MG/2 ML VIAL IVP ONE (21:07)
[2023-06-12 21:32] VITALS: BP 135/78; PULSE 65; RESP 16; TEMP 98.3
== END 2023-06-12 22:11 | disposition home or self-care (01) ==
LOC: EMS 15:55
DX: R10.84 Generalized abdominal pain (principal); K21.9 Gastro-esophageal reflux disease without esophagitis; I10 Essential (primary) hypertension; J45.909 Unspecified asthma, uncomplicated; F41.9 Anxiety disorder, unspecified; F31.9 Bipolar disorder, unspecified; F20.9 Schizophrenia, unspecified; F12.90 Cannabis use, unspecified, uncomplicated
CPT/HCPCS: 99285; 74176; 96374; 96361; 80053; 83605; 83690; 84484; 85025; 36415; G0480; J2765; J2405; J7030

== ENCOUNTER 2024-05-01 05:48 | Emergency (ER) | payer OTHER ==
[~2024-05-01] VITALS: Ht 170.2 cm; Wt 114.1 kg
[~2024-05-01 05:48] MED LIST changes: +ACET-66 PO; -BUPR-344 PO; -CARI1.5C PO; +HALO50VI29 IM; -HYDR-3831 PO; +LISI5TAB21 PO; +OMEP-148 PO; +ONDA-104 PO
[2024-05-01 06:03] VITALS: TEMP 98.3
[2024-05-01] MEDS ORDERED: CEPH-558 PO (07:01)
[2024-05-01] MEDS ORDERED: ACYC-138 PO (09:52)
[2024-05-01 10:47] VITALS: BP 155/94; PULSE 85; RESP 20; O2SAT 97
== END 2024-05-01 11:13 | disposition home or self-care (01) ==
LOC: EMS 05:48
DX: L01.00 Impetigo, unspecified (principal); F41.9 Anxiety disorder, unspecified; J45.909 Unspecified asthma, uncomplicated; F31.9 Bipolar disorder, unspecified; I10 Essential (primary) hypertension; F12.90 Cannabis use, unspecified, uncomplicated; F20.9 Schizophrenia, unspecified; Z79.899 Other long term (current) drug therapy; Z88.5 Allergy status to narcotic agent
CPT/HCPCS: 99283; Z7502

== ENCOUNTER 2024-05-28 04:18 | Emergency (ER) | payer OTHER ==
[~2024-05-28] VITALS: Ht 182.9 cm; Wt 90.9 kg
[~2024-05-28 04:18] MED LIST changes: +CEPH-558 PO; +[UNRECOGNIZED DRUG - CODE] PO
[2024-05-28 04:35] VITALS: TEMP 98.4
[2024-05-28] MEDS: SODIUM CHLORIDE 0.9% 1,000 ML IV ONE (04:55)
[2024-05-28 05:00] LABS: BASOPHILS % (AUTO) 0.1 % (0.0-2.0); EOSINOPHILS % (AUTO) 1.9 % (1.0-6.0); HEMATOCRIT 49.9 % (41-53); HEMOGLOBIN 16.7 g/dL (13.5-17.5); LYMPHOCYTES # (AUTO) 1.4 K/uL (1.0-4.8); LYMPHOCYTES % (AUTO) 14.3 % (22.0-44.0); MEAN CORPUSCULAR HEMOGLOBIN 30.3 pg (26.0-34.0); MEAN CORPUSCULAR HGB CONC 33.5 G/dL (31.0-37.0); MEAN CORPUSCULAR VOLUME 90 fL (80-100); MONOCYTES # (AUTO) 0.6 K/uL (0.1-1.0); MONOCYTES % (AUTO) 6.3 % (2.0-9.0); NEUTROPHILS # (AUTO) 7.4 K/uL (1.8-7.7); NEUTROPHILS % (AUTO) 77.4 % (40.0-70.0); PLATELET COUNT (AUTO) 263 K/uL (150-450); RED BLOOD CELL COUNT(AUTO) 5.52 MIL/uL (4.50-5.90); RED CELL DISTRIBUTION WIDTH 14.5 % (11.5-14.5); WHITE BLOOD COUNT (AUTO) 9.5 K/uL (4.5-11.0)
[2024-05-28 05:09] LABS: ANION GAP 7 mmol/L (8-16); CALCIUM, TOTAL 8.3 mg/dL (8.8-10.5); CARBON DIOXIDE 26 mmol/L (22-29); CHLORIDE 104 mmol/L (98-107); CREATININE 0.79 mg/dL (0.60-1.30); GLOMERULAR FILTR. RATE CALC > 60 mL/min (>60); GLUCOSE,RANDOM 116 mg/dL (70-110); LIPASE 21 U/L (16-77); POTASSIUM 3.8 mmol/L (3.5-5.1); SODIUM SERUM 137 mmol/L (136-145); UREA NITROGEN, BLOOD 13 mg/dL (7-18)
[2024-05-28] MEDS: METOCLOPRAMIDE HCL 5 MG/ML 2 ML VIAL IVP ONE (05:14)
[2024-05-28 06:27] VITALS: BP 135/80; PULSE 65; RESP 18; O2SAT 99
== END 2024-05-28 06:43 | disposition home or self-care (01) ==
LOC: EMS 04:18
DX: K52.9 Noninfective gastroenteritis and colitis, unspecified (principal); I10 Essential (primary) hypertension; J45.909 Unspecified asthma, uncomplicated; F20.9 Schizophrenia, unspecified; F12.90 Cannabis use, unspecified, uncomplicated; F32.A Depression, unspecified; Z79.624 Long term (current) use of inhibitors of nucleotide synthesis; Z79.899 Other long term (current) drug therapy; Z88.5 Allergy status to narcotic agent; Z72.89 Other problems related to lifestyle
CPT/HCPCS: 99285; 96374; 96361; 80048; 83690; 85025; 36415; 74018; 93005; J2765; J7030